=== PATIENT | female | born 1975 | race Caucasian/White ===

== ENCOUNTER 2021-06-06 11:18 | Emergency (ER) | payer OTHER ==
[~2021-06-06] VITALS: Ht 162.6 cm; Wt 90.7 kg
[2021-06-06 13:31] LABS: HEMOGLOBIN 14.4 gm/dl (12.3-15.3); RED BLOOD COUNT 4.77 M/UL (4.00-5.10); WHITE BLOOD COUNT 12.4 K/UL (4.5-11.0)
[2021-06-06 13:41] LABS: BUN/CREATININE RATIO 11 (0-10)
[2021-06-06] MEDS ORDERED: CLINDAMYCIN HC150 MG PO (15:36)
== END 2021-06-06 18:51 | disposition home or self-care (01) ==
LOC: ER1 11:18
PROVIDERS: Physician Assistant
DX: K02.9 Dental caries, unspecified (principal); K04.7 Periapical abscess without sinus; K05.10 Chronic gingivitis, plaque induced
CPT/HCPCS: 70487; 80053; 85025; 96374; 99283; Q9967